=== PATIENT | female | born 1970 | race Caucasian/White ===

== ENCOUNTER 2016-06-26 10:52 | Outpatient (CLI) | payer MEDICARE, MEDICAID | END 2016-06-26 10:53 | disposition home or self-care (01) | DX: R50.9 Fever, unspecified (principal); R21 Rash and other nonspecific skin eruption; M79.1 Myalgia ==

== ENCOUNTER 2017-03-07 10:18 | Outpatient (CLI) | payer MEDICARE, MEDICAID ==
[2017-03-07 18:17] LABS: BILIRUBIN,URINE NEGATIVE (NEGATIVE); GLUCOSE, URINE (UA) NEGATIVE (NEGATIVE); KETONES,URINE (UA) NEGATIVE (NEGATIVE); LEUKOCYTE ESTERASE, URINE NEGATIVE (NEGATIVE); NITRITE,URINE NEGATIVE (NEGATIVE); OCCULT BLOOD,URINE NEGATIVE (NEGATIVE); PROTEIN,URINE NEGATIVE (NEGATIVE); UROBILINOGEN,URINE 0.2 (NORMAL) E.U./dL (NORMAL)
[2017-03-07 18:18] LABS: BASOPHILS # (AUTO) 0.1 10^3/uL (0.0-0.1); BASOPHILS % (AUTO) 1.2 %; EOSINOPHILS # (AUTO) 0.1 10^3/uL (0.0-0.7); EOSINOPHILS % (AUTO) 1.6 %; HGB - HEMOGLOBIN 12.9 g/dL (12.0-16.0); LYMPHOCYTES % (AUTO) 32.5 %; MEAN CORPUSCULAR HEMOGLOBIN 31.7 pg (27.0-31.0); MEAN CORPUSCULAR HGB CONC 32.8 g/dL (32.0-36.0); MEAN CORPUSCULAR VOLUME 96.6 fL (81.0-99.0); MEAN PLATELET VOLUME 9.6 fL (7.9-10.8); MONOCYTES # (AUTO) 0.5 10^3/uL (0.0-1.0); MONOCYTES % (AUTO) 7.6 %; NEUTROPHILS # (AUTO) 3.6 10^3/uL (1.5-6.6); NEUTROPHILS % (AUTO) 57.1 %; PLT - PLATELET COUNT 246 10^3/uL (130-450); RED BLOOD COUNT 4.08 10^6/uL (4.20-5.40); RED CELL DISTRIBUTION WIDTH 13.4 % (12.0-15.0); WHITE BLOOD COUNT 6.3 x10^3/uL (4.8-10.8)
[2017-03-07 18:29] LABS: CLARITY,URINE CLEAR (CLEAR)
[2017-03-07 18:44] LABS: ALBUMIN 4.4 g/dL (3.2-5.5); ALBUMIN/GLOBULIN RATIO 1.5 (1.0-2.2); ALKALINE PHOSPHATASE 48 IU/L (42-121); ALT ALANINE AMINOTRANSFERASE 44 IU/L (10-60); AST ASPARTATE AMINOTRANSFERASE 55 IU/L (10-42); BILIRUBIN,TOTAL 0.7 mg/dL (0.2-1.0); BUN - BLOOD UREA NITROGEN 17 mg/dL (6-20); CARBON DIOXIDE - CO2 23 mmol/L (21-32); CHLORIDE 103 mmol/L (101-111); CHOL/HDL RATIO 2.3 (<4.4); CHOLESTEROL 205 mg/dL; CREATININE 0.6 mg/dL (0.4-1.0); GFR - MDRD 107 (>89); GLUCOSE 97 mg/dL (70-100); HDL CHOLESTEROL 88 mg/dL; LDL CHOLESTEROL,CALCULATED 102 mg/dL; LDL/HDL RATIO 1.2 (<4.4); SODIUM 134 mmol/L (135-145); TOTAL PROTEIN 7.4 g/dL (6.7-8.2); VLDL CHOLESTEROL 15 mg/dL
[2017-03-07 18:47] LABS: THYROID STIMULATING HORMONE 2.2 uIU/mL (0.34-5.60)
== END 2017-03-07 10:19 | disposition home or self-care (01) ==
LOC: LAB.F 10:18
PROVIDERS: ATTEND Internal Medicine
DX: Z00.00 Encounter for general adult medical examination without abnormal findings (principal); R53.83 Other fatigue; R07.0 Pain in throat; M79.1 Myalgia; R53.81 Other malaise; M25.50 Pain in unspecified joint; F43.10 Post-traumatic stress disorder, unspecified; Z79.899 Other long term (current) drug therapy; R50.9 Fever, unspecified
CPT/HCPCS: 36415; 80053; 80061; 81001; 81003; 82607; 84443; 85025; 87086

== ENCOUNTER 2018-02-22 12:10 | Emergency (ER) | payer MEDICAID, MEDICARE ==
[2018-02-22 12:34] VITALS: BP 110/70
[2018-02-22] MEDS ORDERED: BUFFERED LIDOCAINE 10 ML SYRINGE SUBQ STA (13:37)
--- NOTE | 2018-02-22 13:38 | ED Physician Documentation ---
PD HPI LOWER EXT INJURY - Stated complaint Stated Complaint: R FOOT INJ - Chief complaint Chief Complaint: Ext Problem - History obtained from History obtained from: Patient - History of Present Illness PD HPI LOW EXT INJURY LOCATION: Right (She thinks she might have a retained foreign body or something on the skin of the top of the right little toe it has been there for about 2 months. Not worsening but is just persistently annoying. She also had a splinter in the left thumb about a week ago which was removed and she was started on Keflex at that time but she never took it. She is up-to-date on tetanus.) Review of Systems Constitutional: reports: Reviewed and negative Nose: reports: Reviewed and negative Throat: reports: Reviewed and negative Cardiac: reports: Reviewed and negative PD PAST MEDICAL HISTORY - Past Medical History Past Medical History: Yes Psych: Post traumatic stress disorder - Past Surgical History HEENT: Tonsil/Adenoidectomy - Allergies Allergies/Adverse Reactions: Allergies Allergy/AdvReac Type Severity Reaction Status Date / Time meperidine [From Demerol] Allergy Hallucinati Verified 02/22/18 12:35 ons promethazine [From Phenergan] Allergy Hallucinati Verified 02/22/18 12:35 ons codeine AdvReac Nausea Verified 02/22/18 12:35 - Social History Does the pt smoke?: No Smoking Status: Never smoker PD ED PE NORMAL - Vitals Vital signs reviewed: Yes - General General: Alert and oriented X 3, No acute distress - Extremities Extremities: Other (There is a completely healed callus over a wound on the left thumb without evidence of retained foreign body. There is a tiny pointed abscess on the top of the right little toe on the low medial side. Good range of motion and minimal cellulitis.) - Neuro Neuro: Alert and oriented X 3, Normal speech Results - Vitals Vitals: Vital Signs - 24 hr 02/22/18 12:29 Temperature 36.9 C Heart Rate 82 Respiratory 18 Rate Blood Pressure 110/70 O2 Saturation 100 Oxygen O2 Source Room air Procedures - Abscess I&D (location) R foot Preparation: Betadine Incision: Needle aspiration (it was tiny, about 1mm), Purulent drainage, Culture obtained. No: Incised with scalpel Other: Pt tolerated well, Dressing applied. No: Antibiotic prescribed (She has Keflex at home but does not want start antibiotics until the Culture is done.) Departure - Departure Disposition: 01 Home, Self Care Clinical Impression: Abscess Condition: Good Record reviewed to determine appropriate education?: Yes Instructions: ED Abscess IandD Comments: We are performing a wound culture, the results should be done in 48-72 hours. If antibiotic is necessary we will call you. Return if worse in the meantime, especially if you develop increased pain, fevers, cannot keep down the medication. Otherwise follow-up with your physician in approximately 2-3 days.
== END 2018-02-22 14:05 | disposition home or self-care (01) ==
LOC: ED 12:10
DX: L02.611 Cutaneous abscess of right foot (principal); B95.8 Unspecified staphylococcus as the cause of diseases classified elsewhere
CPT/HCPCS: 10160; 87070; 87181; 87205; 99282

== ENCOUNTER 2018-05-12 16:58 | Outpatient (CLI) | payer MEDICARE, MEDICAID | END 2018-05-12 16:59 | disposition home or self-care (01) | LOC: LAB 16:58 | PROVIDERS: ATTEND Internal Medicine | DX: R50.9 Fever, unspecified (principal); R05 Cough | CPT/HCPCS: 87275; 87276 ==

== ENCOUNTER 2018-05-12 17:28 | Outpatient (CLI) | payer MEDICARE, MEDICAID ==
--- NOTE | 2018-05-12 18:36 | XRAY Report ---
Reason: COUGH Procedure Date: 05/12/2018 Accession Number: [id number] / [id number] Procedure: XR - Chest 2 View X-Ray CPT Code: 02923 FULL RESULT: EXAM: CHEST RADIOGRAPHY EXAM DATE: 05/12/2018 05:44 PM. CLINICAL HISTORY: COUGH. COMPARISON: XR CHEST PA AND LAT 03/30/2012 12:46 PM. TECHNIQUE: 2 views. FINDINGS: Lungs/Pleura: No definite localized infiltrate, consolidation, effusion, or pneumothorax. Mediastinum: Heart and mediastinal contours are unremarkable. Other: None. IMPRESSION: Normal 2-view chest radiography. RADIA The call report notification system was initiated by Dr. Rickey Araujo at 06:35 PM on 05/12/2018.
== END 2018-05-12 17:29 | disposition home or self-care (01) ==
LOC: DI 17:28
PROVIDERS: ATTEND Internal Medicine
DX: R05 Cough (principal); R50.9 Fever, unspecified
CPT/HCPCS: 71046; 87275; 87276

== ENCOUNTER 2018-07-03 13:31 | Outpatient (CLI) | payer MEDICARE, MEDICAID ==
--- NOTE | 2018-07-05 20:03 | MRI Report ---
Reason: NECK PAIN WITH PAIN IN L ARM,NUMBNESS IN HANDS Procedure Date: 07/03/2018 Accession Number: [id number] / [id number] Procedure: MRI - Cervical Spine W/O CPT Code: FULL RESULT: EXAM: MRI CERVICAL SPINE WITHOUT CONTRAST EXAM DATE: 07/03/2018 02:43 PM. CLINICAL HISTORY: NECK PAIN WITH PAIN IN LEFT ARM, NUMBNESS IN HANDS. COMPARISONS: C SPINE 11/05/2007 10:24 AM. TECHNIQUE: Multiplanar, multisequence T1-weighted and fluid-sensitive sequences of the cervical spine without contrast. Other: None. FINDINGS: Neurologic Structures: The visualized posterior fossa structures are unremarkable. No signal abnormality in the visualized spinal cord. Alignment: New grade 1 anterolisthesis at C4-C5 measures 1-2 mm. Retrolisthesis at C5-C6 and C6-C7 is worsened measuring 2-3 mm. Bone Marrow: New type I Modic endplate changes are present at C4-C5, C5-C6, and C6-C7. Interspace Levels/Facets: C1-C2: Unremarkable. C2-C3: Mild left foraminal narrowing is present due to uncovertebral hypertrophy and facet arthropathy. The spinal canal and right foramen are patent. These findings have progressed, where there was no spinal canal or foraminal stenosis on the prior MRI. C3-C4: Disk bulge is present without spinal canal stenosis. The foramina are patent. The disk bulge is new. C4-C5: Disk bulge results in mild spinal canal stenosis without impingement of the spinal cord. There is moderate right foraminal narrowing due to uncovertebral hypertrophy and facet arthropathy. The left foramen is patent. There was no spinal canal or foraminal stenosis on the prior MRI. C5-C6: A posterior disk osteophyte complex results in mild spinal canal stenosis without impingement of the spinal cord. There is moderate left foraminal narrowing due to uncovertebral hypertrophy. The right foramen is patent. There is no spinal canal or foraminal stenosis on the prior MRI. C6-C7: The posterior disk osteophyte complex results in mild spinal canal stenosis without impingement of the spinal cord. There is moderate left and mild right foraminal narrowing due to uncovertebral hypertrophy. There is no spinal canal or foraminal stenosis on the prior MRI. C7-T1: Bilateral facet arthropathy is present without spinal canal or foraminal stenosis. Musculature: Normal. No edema or fatty atrophy. Other: The paravertebral and prevertebral soft tissues are normal. IMPRESSION: 1. Normal cervical spinal cord signal intensity. 2. Moderate progression of multilevel degenerative changes compared to the prior cervical spine MRI from 11/05/07. 3. However, no high-grade spinal canal stenosis or spinal cord impingement has developed. 4. New moderate right foraminal narrowing at C4-C5, on the left at C5-C6, and on the left at C6-C7. RADIA
== END 2018-07-03 13:32 | disposition home or self-care (01) ==
LOC: DI 13:31
PROVIDERS: ATTEND Internal Medicine
DX: M50.31 Other cervical disc degeneration, high cervical region (principal); M48.02 Spinal stenosis, cervical region; M47.9 Spondylosis, unspecified; M43.12 Spondylolisthesis, cervical region
CPT/HCPCS: 72141

== ENCOUNTER 2018-09-23 07:11 | Outpatient (CLI) | payer MEDICARE, MEDICAID ==
--- NOTE | 2018-09-23 14:32 | Ultrasound Report ---
Reason: CHRONIC HEPATITIS C WITHOUT MENTION OF HEPATIC COM Procedure Date: 09/23/2018 Accession Number: [id number] / [id number] Procedure: US - Abdomen Limited CPT Code: FULL RESULT: EXAM: ABDOMEN ULTRASOUND LIMITED, RUQ EXAM DATE: 09/23/2018 08:01 AM. CLINICAL HISTORY: CHRONIC HEPATITIS C WITHOUT MENTION OF HEPATIC COM. COMPARISON: None. TECHNIQUE: Real-time scanning was performed with static images obtained. FINDINGS: Liver: Minimally increased echogenicity, otherwise normal echo texture. This can limit sensitivity for underlying masses, no solid mass is seen. Liver measures at least 14.4 cm. A small simple 0.8 cm cyst is noted in the right lobe. Main portal vein flow: Hepatopetal. Gallbladder: Normal. No stones, wall thickening, or sonographic Ferrari's sign. Biliary System: CBD measures 3 mm. No intrahepatic or extrahepatic ductal dilatation. Other: Right kidney measures 10.7 cm in maximal sagittal dimension and demonstrates no overt mass, calculi or hydronephrosis. IMPRESSION: Mildly increased echogenicity of liver parenchyma which is a nonspecific finding sometimes associated with steatosis. RADIA
== END 2018-09-23 07:12 | disposition home or self-care (01) ==
LOC: DI 07:11
PROVIDERS: ATTEND Internal Medicine Gastroenterology
DX: B18.2 Chronic viral hepatitis C (principal)
CPT/HCPCS: 76705

== ENCOUNTER 2019-04-16 14:55 | Outpatient (CLI) | payer MEDICAID, MEDICARE ==
[2019-04-16 17:46] LABS: BASOPHILS # (AUTO) 0.1 10^3/uL (0.0-0.1); BASOPHILS % (AUTO) 0.5 %; EOSINOPHILS # (AUTO) 0.1 10^3/uL (0.0-0.7); EOSINOPHILS % (AUTO) 1.4 %; HGB - HEMOGLOBIN 12.8 g/dL (12.0-16.0); LYMPHOCYTES # (AUTO) 3.2 10^3/uL (1.5-3.5); LYMPHOCYTES % (AUTO) 31.6 %; MEAN CORPUSCULAR HEMOGLOBIN 31.7 pg (27.0-31.0); MEAN CORPUSCULAR HGB CONC 32.7 g/dL (32.0-36.0); MEAN CORPUSCULAR VOLUME 96.8 fL (81.0-99.0); MEAN PLATELET VOLUME 12.2 fL (7.9-10.8); MONOCYTES # (AUTO) 0.6 10^3/uL (0.0-1.0); MONOCYTES % (AUTO) 5.8 %; NEUTROPHILS % (AUTO) 60.3 %; PLT - PLATELET COUNT 254 10^3/uL (130-450); RED BLOOD COUNT 4.04 10^6/uL (4.20-5.40); RED CELL DISTRIBUTION WIDTH 13.5 % (12.0-15.0)
[2019-04-16 17:48] LABS: ALBUMIN 4.3 g/dL (3.2-5.5); ALBUMIN/GLOBULIN RATIO 1.4 (1.0-2.2); ALKALINE PHOSPHATASE 41 IU/L (42-121); ALT ALANINE AMINOTRANSFERASE < 10 IU/L (10-60); AST ASPARTATE AMINOTRANSFERASE 24 IU/L (10-42); BILIRUBIN,TOTAL 0.5 mg/dL (0.2-1.0); BUN - BLOOD UREA NITROGEN 24 mg/dL (6-20); CARBON DIOXIDE - CO2 21 mmol/L (21-32); CHLORIDE 104 mmol/L (101-111); CREATININE 0.6 mg/dL (0.4-1.0); GFR - MDRD 106 (>89); GLUCOSE 108 mg/dL (70-100); SODIUM 136 mmol/L (135-145); TOTAL PROTEIN 7.4 g/dL (6.7-8.2)
[2019-04-16 18:04] LABS: THYROID STIMULATING HORMONE 1.73 uIU/mL (0.34-5.60)
[2019-04-16 18:32] LABS: FOLLICLE STIMULATING HORMONE 8.17 mIU/mL
== END 2019-04-16 14:56 | disposition home or self-care (01) ==
LOC: LAB.S 14:55
PROVIDERS: ATTEND Internal Medicine
DX: Z79.899 Other long term (current) drug therapy (principal); R53.83 Other fatigue; N92.1 Excessive and frequent menstruation with irregular cycle
CPT/HCPCS: 36415; 80053; 83001; 84443; 85025

== ENCOUNTER 2019-08-26 07:19 | Outpatient (CLI) | payer MEDICARE ==
[2019-08-26 14:59] LABS: BASOPHILS # (AUTO) 0.1 10^3/uL (0.0-0.1); EOSINOPHILS # (AUTO) 0.3 10^3/uL (0.0-0.7); HGB - HEMOGLOBIN 12.5 g/dL (12.0-16.0); LYMPHOCYTES # (AUTO) 2.1 10^3/uL (1.5-3.5); LYMPHOCYTES % (AUTO) 29.9 %; MEAN CORPUSCULAR HEMOGLOBIN 31.6 pg (27.0-31.0); MEAN CORPUSCULAR HGB CONC 31.7 g/dL (32.0-36.0); MEAN CORPUSCULAR VOLUME 99.7 fL (81.0-99.0); MEAN PLATELET VOLUME 11.5 fL (7.9-10.8); MONOCYTES # (AUTO) 0.6 10^3/uL (0.0-1.0); MONOCYTES % (AUTO) 8.5 %; NEUTROPHILS # (AUTO) 3.9 10^3/uL (1.5-6.6); NEUTROPHILS % (AUTO) 56.3 %; PLT - PLATELET COUNT 260 10^3/uL (130-450); RED BLOOD COUNT 3.95 10^6/uL (4.20-5.40)
[2019-08-26 15:35] LABS: % IRON SATURATION 39 % (20-50); ALBUMIN 3.8 g/dL (3.2-5.5); ALBUMIN/GLOBULIN RATIO 1.4 (1.0-2.2); ALKALINE PHOSPHATASE 40 IU/L (42-121); ALT ALANINE AMINOTRANSFERASE 10 IU/L (10-60); AST ASPARTATE AMINOTRANSFERASE 18 IU/L (10-42); BILIRUBIN,TOTAL 0.9 mg/dL (0.2-1.0); BUN - BLOOD UREA NITROGEN 18 mg/dL (6-20); CALCIUM 8.6 mg/dL (8.5-10.3); CARBON DIOXIDE - CO2 25 mmol/L (21-32); CHLORIDE 109 mmol/L (101-111); CHOL/HDL RATIO 2.5 (<4.4); CHOLESTEROL 189 mg/dL; CREATININE 0.6 mg/dL (0.4-1.0); GLUCOSE 104 mg/dL (70-100); HDL CHOLESTEROL 75 mg/dL; IRON 120 ug/dL (28-170); LDL CHOLESTEROL,CALCULATED 104 mg/dL; LDL/HDL RATIO 1.4 (<4.4); SODIUM 139 mmol/L (135-145); TOTAL IRON BINDING CAPACITY 305 ug/dL (250-450); TOTAL PROTEIN 6.6 g/dL (6.7-8.2); TRANSFERRIN 218 mg/dL (192-382); VLDL CHOLESTEROL 10 mg/dL
[2019-08-26 15:43] LABS: THYROID STIMULATING HORMONE 2.96 uIU/mL (0.34-5.60)
[2019-08-26 15:50] LABS: FERRITIN 24.9 ng/mL (11.0-306.8)
[2019-08-26 16:11] LABS: FOLLICLE STIMULATING HORMONE 17.91 mIU/mL
== END 2019-08-26 07:20 | disposition home or self-care (01) ==
LOC: LAB.S 07:19
PROVIDERS: ATTEND Internal Medicine
DX: D64.9 Anemia, unspecified (principal); R53.83 Other fatigue; Z79.899 Other long term (current) drug therapy; R42 Dizziness and giddiness
CPT/HCPCS: 36415; 80053; 80061; 82607; 82728; 83001; 83540; 83721; 84443; 84466; 85025

== ENCOUNTER 2019-09-24 14:02 | Outpatient (CLI) | payer MEDICARE ==
--- NOTE | 2019-09-24 16:53 | MRI Report ---
PROCEDURE: Cervical Spine W/O INDICATIONS: NECK PAIN TECHNIQUE: Noncontrast sagittal T1 spin echo and T2 fast spin echo, sagittal STIR, foraminal oblique sagittal T2 fast spin echo, and axial gradient echo or T2 fast spin echo through the cervical spine. COMPARISON: Correlation is made with prior cervical spine MRI 07/03/18 (images only, no report). FINDINGS: Image quality: Motion artifact is noted. Alignment and Curvature: There is reversal of the normal cervical lordosis. There is minimal anterol isthesis of C4-C5 with mild retrolisthesis at C5-C6 and C6-C7. Bone Marrow: Marrow demonstrates normal overall signal. Spinal Cord: Visualized spinal cord has normal size and signal. No cerebellar tonsillar herniation. Paraspinous Soft Tissues: No paravertebral masses. Prevertebral soft tissues are normal in thicknes s. C2-C3: The disc height is well-preserved. There is loss of disc signal seen. Mild disc osteophyte complex is seen. There is mild right-sided and at least moderate left-sided facet hypertrophy seen. There is moderate right-sided and at least moderate left-sided neuroforaminal narrowing seen. No sig nificant central canal narrowing is seen. These imaging findings are similar to the images of the p rior examination. C3-C4: The disc height is well-preserved. There is loss of disc signal seen. Moderate disc osteophy te complex is seen, which is eccentric to the left side. There is mild right-sided and moderate left- sided facet hypertrophy seen at this level. There is moderate to severe left-sided and moderate right -sided neuroforaminal narrowing seen. Mild central canal narrowing is seen. These imaging findings are similar to the images of the prior examination. C4-C5: Moderate loss of disc height and signal are seen. Moderate disc osteophyte complex is seen, w hich is eccentric to the right. There is moderate facet hypertrophy seen, right worse than left. Ther e is moderate to severe right-sided and mild to moderate left-sided neuroforaminal narrowing seen. Mi ld to moderate central canal narrowing is seen. These imaging findings are similar to the images of the prior examination. C5-C6: Moderate to severe loss of disc height and disc signal is seen. Moderate disc osteophyte comp sherwin is seen, which is eccentric to the left. Moderate facet hypertrophy is seen. There is moderate to severe left and moderate right-sided neuroforaminal narrowing seen. Mild to moderate central canal narrowing is seen. No significant change compared to the prior. C6-C7: Moderate to severe loss of disc height and disc signal can be seen. Moderate disc osteophyte complex is seen, which is eccentric to the right. Mild to moderate facet hypertrophy is seen. There i s moderate to severe left-sided and at least moderate right-sided neuroforaminal narrowing seen. Mild to moderate central canal narrowing is seen. These imaging findings are similar to the images of th e prior examination. C7-T1: The disc height is relatively well preserved. Mild disc osteophyte complex is seen. There is mild left-sided and no significant right-sided neuroforaminal narrowing seen. No significant centr al canal narrowing is seen. No significant change compared to the prior examination. IMPRESSION: Multiple levels of cervical spine degenerative change are seen, which are most prominent at C5-C6 and C6-C7. No significant progression compared to the prior 2007 examination. Reviewed by: Kumar Yoon MD on 09/24/2019 3:52 PM NAMAN Approved by: Kumar Yoon MD on 09/24/2019 3:52 PM NAMAN Station ID: [id number]
== END 2019-09-24 14:03 | disposition home or self-care (01) ==
LOC: DI 14:02
PROVIDERS: ATTEND Internal Medicine
DX: M50.322 Other cervical disc degeneration at C5-C6 level (principal); M54.5 Low back pain
CPT/HCPCS: 72141

== ENCOUNTER 2020-04-21 13:02 | Outpatient (CLI) | payer MEDICARE, MEDICAID ==
--- NOTE | 2020-04-24 12:56 | Mammography Report ---
BILATERAL DIGITAL SCREENING MAMMOGRAM 3D/2D: 04/21/2020 CLINICAL: Routine screening. No prior exams were available for comparison. There are scattered fibroglandular elements in both br easts. No significant masses, calcifications, or other findings are seen in either breast. IMPRESSION: NEGATIVE There is no mammographic evidence of malignancy. A 1 year screening mammogram is recommended. This exam was interpreted at Station ID: [id number]. NOTE: For mammograms, a report in lay terms will be sent to the patient. Approximately 15% of breast malignancies will not be visualized mammographically. In the management of a palpable breast mass, a negative mammogram must not discourage biopsy of a clinically suspicious lesion. Electronically Signed By: Karson velazquez/pensebastien:04/21/2020 17:26:38 ACR BI-RADS Category 1: Negative 3341F PARENCHYMAL PATTERN: (A) - The breast(s) demonstrate(s) scattered fibroglandular densities. BI-RADS CATEGORY: (1) - 1 RECOMMENDATION: (ANNUAL) - Recommend routine annual screening mammography. [id number] 1 year screening LATERALITY: (B)
== END 2020-04-21 13:03 | disposition home or self-care (01) ==
LOC: DI 13:02
DX: Z12.31 Encounter for screening mammogram for malignant neoplasm of breast (principal)

== ENCOUNTER 2020-06-07 07:05 | Outpatient (CLI) | payer MEDICARE, MEDICAID ==
--- NOTE | 2020-06-07 16:07 | Ultrasound Report ---
PROCEDURE: Pelvic w/Transvaginal INDICATIONS: ABN UTERINE BLEEDING TECHNIQUE: Real-time scanning was performed of the pelvic organs, with image documentation. Additional endovagi nal scanning was necessary due to incomplete visualization of the adnexal and endometrial structures by transabdominal scanning. COMPARISON: None. FINDINGS: No pathologic free abdominal or pelvic fluid. Uterus: Uterus is normal in size at 7.9 x 5.1 x 5.0 cm. The endometrium measures 7.4 mm in combined thickness. Within the uterus in the mid posterior intramural and submucosal regions there are foci o f heterogeneous echogenicity. They measure 15 x 12 x 13 mm and 19 x 18 x 14 mm respectively. Ovaries: Right ovary measures 2.4 x 2.3 x 1.1 cm, volume 3.2 cc. Left ovary measures 3.7 x 2.6 x 2.5 cm, volume 12.6 cc. Focus of decreased echogenicity is noted within the left ovary measuring 2.7 x 2 .4 x 2.5 cm. IMPRESSION: 1. Foci of uterine heterogeneous echogenicity suggestive of small fibroids. 2. Left ovarian cyst. Reviewed by: Aleida Finnegan MD on 06/07/2020 4:05 PM PDT Approved by: Aleida Finnegan MD on 06/07/2020 4:05 PM PDT Station ID: [id number]
== END 2020-06-07 07:06 | disposition home or self-care (01) ==
LOC: DI 07:05
PROVIDERS: ATTEND Advanced Practice Midwife
DX: N93.9 Abnormal uterine and vaginal bleeding, unspecified (principal); N83.202 Unspecified ovarian cyst, left side

== ENCOUNTER 2020-06-18 15:40 | Emergency (ER) | payer MEDICARE, MEDICAID ==
--- NOTE | 2020-06-18 16:17 | ED Physician Documentation ---
History of Present Illness - Stated complaint Stated Complaint: DIZZINESS - Chief complaint Chief Complaint: Neuro - History obtained from History obtained from: Patient - History of Present Illness Pain level max: 0 Pain level now: 0 - Additonal information Additional information: Patient is a 50-year-old female who presents to the emergency department stating she has had intermittent dizziness for the past several days. She states she recently had a month-long episode of vaginal bleeding, thought to be secondary to uterine fibroids. She states she is no longer bleeding. She contacted her primary care provider who recommended she come here to have her hemoglobin rechecked. No numbness or tingling. No difficulty with speech. No vision changes. Worse with standing, better with sitting or lying down. No changes with turning her head. She states that normally lasts for a few seconds at a time. She states her doctor also wanted her to have her thyroid checked. No chest pain. No shortness of breath. Review of Systems Constitutional: denies: Fever, Chills Ears: denies: Ear pain Nose: denies: Rhinorrhea / runny nose, Congestion Throat: denies: Sore throat Cardiac: denies: Chest pain / pressure, Palpitations Respiratory: denies: Cough, Wheezing GI: denies: Nausea, Vomiting, Diarrhea : denies: Dysuria Skin: denies: Rash Musculoskeletal: denies: Neck pain, Back pain Neurologic: denies: Headache PD PAST MEDICAL HISTORY - Past Medical History Past Medical History: Yes Cardiovascular: None Respiratory: None Neuro: None Endocrine/Autoimmune: None GI: None TECHNICAL INSPECTOR: None : None HEENT: None Psych: Anxiety, Post traumatic stress disorder Musculoskeletal: None Derm: None - Past Surgical History Past Surgical History: Yes HEENT: Tonsil/Adenoidectomy - Present Medications Home Medications: Ambulatory Orders Medication Instructions Recorded Confirmed Atomoxetine HCl [Strattera] 1 tab PO DAILY 03/03/18 03/03/18 cephALEXin [Keflex] 500 mg PO Q6H #24 capsule 03/03/18 - Allergies Allergies/Adverse Reactions: Allergies Allergy/AdvReac Type Severity Reaction Status Date / Time meperidine [From Demerol] Allergy Hallucinati Verified 06/18/20 15:46 ons promethazine [From Phenergan] Allergy Hallucinati Verified 06/18/20 15:46 ons codeine AdvReac Nausea Verified 06/18/20 15:46 - Social History Does the pt smoke?: No Smoking Status: Never smoker Does the pt drink ETOH?: No Does the pt have substance abuse?: No - Immunizations Immunizations are current?: Yes - POLST Patient has POLST: No PD ED PE NORMAL - Vitals Vital signs reviewed: Yes - General General: Alert and oriented X 3, No acute distress, Well developed/nourished - HEENT HEENT: PERRL, Moist mucous membranes - Neck Neck: Supple, no meningeal sign - Cardiac Cardiac: RRR, Strong equal pulses - Respiratory Respiratory: No respiratory distress, Clear bilaterally - Abdomen Abdomen: Soft, Non tender, Non distended - Derm Derm: Warm and dry - Extremities Extremities: No edema, No calf tenderness / cord - Neuro Neuro: Alert and oriented X 3, sheetrock applicator 2-12 intact, No motor deficit, No sensory deficit, Other (Negative hints exam. No nystagmus. Normal cerebellar test. Normal gait.) Eye Opening: Spontaneous Motor: Obeys Commands Verbal: Oriented GCS Score: 15 - Psych Psych: Normal mood, Normal affect - Free text exam Free text exam: NIHSS 0 Results - Vitals Vitals: Vital Signs - 24 hr 06/18/20 06/18/20 06/18/20 15:46 16:05 17:31 Temperature 37.4 C 37.4 C 37.2 C Heart Rate 80 80 80 Respiratory 18 18 16 Rate Blood Pressure 116/78 116/78 118/76 O2 Saturation 99 99 100 Oxygen O2 Source Room air - EKG (time done) 1607 Rate: Rate (enter#) (69) Rhythm: NSR [place]: Normal Intervals: Normal MT QRS: Normal Ischemia: Non specific changes - Labs Labs: Laboratory Tests 06/18/20 06/18/20 06/18/20 16:42 16:42 16:42 WBC 7.3 RBC 4.02 L Hgb 13.2 Hct 38.9 MCV 96.8 MCH 32.8 H MCHC 33.9 RDW 13.3 Plt Count 275 MPV 10.3 Neut # (Auto) 4.1 Lymph # (Auto) 2.4 Tensas # (Auto) 0.6 Eos # (Auto) 0.1 Baso # (Auto) 0.1 Absolute Nucleated RBC 0.00 Nucleated RBC % 0.0 Sodium 135 Potassium 3.4 L Chloride 101 Carbon Dioxide 25 Anion Gap 9.0 BUN 24 H Creatinine 0.7 Estimated GFR (MDRD) 88 L Glucose 98 Calcium 9.2 Total Bilirubin 0.3 AST 20 ALT 11 Alkaline Phosphatase 48 Total Protein 7.4 Albumin 4.2 Globulin 3.2 Albumin/Globulin Ratio 1.3 TSH 1.68 Free T4 0.83 PD MEDICAL DECISION MAKING - ED course Complexity details: reviewed results, re-evaluated patient, considered differential, d/w patient ED course: No significant laboratory abnormalities. Does appear dehydrated on exam with an elevated BUN to creatinine ratio. Patient is well-appearing, nontoxic. Afebri le. No focal neurological deficits. Patient counseled regarding signs and symptoms for which I believe and urgent re-evaluation would be necessary. Patient with good understanding of and agreement to plan and is comfortable going home at this time This document was made in part using voice recognition software. While efforts are made to proofread this document, sound alike and grammatical errors may occur. Will increase fluid intake at home. Departure - Departure Disposition: 01 Home, Self Care Clinical Impression: Dehydration, Dizziness Condition: Good Instructions: ED Dehydration Follow-Up: Jenna Garcia MD [Primary Care Provider] - Within 1 week Comments: Your blood counts are normal today. Please follow-up with your doctor for further care. You do have signs of dehydration on your blood work. Please increase your water intake at home. Return if you worsen. Discharge Date/Time: 06/18/20 17:31
--- OUTSIDE RECORDS SUMMARY | 2020-06-18 16:26 | EXTERNAL MEDICAL SUMMARY RPT | Continuity of Care Document ---
:1970 Demographics Phone Unavailable Preferred Language Unknown Marital Status Unknown Voodoo Affiliation Unknown Race Unknown Ethnic Group Unknown Author Organization [facility] Address [address] [phone] Phone Social History date description facility [id number]
[2020-06-18 16:47] LABS: BASOPHILS # (AUTO) 0.1 10^3/uL (0.0-0.1); BASOPHILS % (AUTO) 0.7 %; EOSINOPHILS # (AUTO) 0.1 10^3/uL (0.0-0.7); EOSINOPHILS % (AUTO) 1.8 %; HCT - HEMATOCRIT 38.9 % (37.0-47.0); HGB - HEMOGLOBIN 13.2 g/dL (12.0-16.0); LYMPHOCYTES # (AUTO) 2.4 10^3/uL (1.5-3.5); LYMPHOCYTES % (AUTO) 32.3 %; MEAN CORPUSCULAR HEMOGLOBIN 32.8 pg (27.0-31.0); MEAN CORPUSCULAR HGB CONC 33.9 g/dL (32.0-36.0); MEAN CORPUSCULAR VOLUME 96.8 fL (81.0-99.0); MEAN PLATELET VOLUME 10.3 fL (7.9-10.8); MONOCYTES # (AUTO) 0.6 10^3/uL (0.0-1.0); MONOCYTES % (AUTO) 8.3 %; NEUTROPHILS # (AUTO) 4.1 10^3/uL (1.5-6.6); NEUTROPHILS % (AUTO) 56.6 %; PLT - PLATELET COUNT 275 10^3/uL (130-450); RED BLOOD COUNT 4.02 10^6/uL (4.20-5.40); RED CELL DISTRIBUTION WIDTH 13.3 % (12.0-15.0); WHITE BLOOD COUNT 7.3 x10^3/uL (4.8-10.8)
[2020-06-18 17:01] LABS: ALBUMIN 4.2 g/dL (3.2-5.5); ALBUMIN/GLOBULIN RATIO 1.3 (1.0-2.2); BILIRUBIN,TOTAL 0.3 mg/dL (0.2-1.0); CALCIUM 9.2 mg/dL (8.5-10.3); CREATININE 0.7 mg/dL (0.4-1.0); POTASSIUM 3.4 mmol/L (3.5-5.0); TOTAL PROTEIN 7.4 g/dL (6.7-8.2)
[2020-06-18 17:18] LABS: THYROID STIMULATING HORMONE 1.68 uIU/mL (0.34-5.60)
[2020-06-18 17:20] LABS: FREE T4 (FREE THYROXINE) 0.83 ng/dL (0.58-1.64)
[2020-06-18 17:32] VITALS: BP 118/76
== END 2020-06-18 17:31 | disposition home or self-care (01) ==
LOC: ED 15:40
DX: E86.0 Dehydration (principal); R42 Dizziness and giddiness; F41.9 Anxiety disorder, unspecified
CPT/HCPCS: 36415; 80053; 84439; 84443; 85025; 93005; 99283; 99284

== ENCOUNTER 2020-11-14 17:19 | Outpatient (CLI) | payer MEDICARE, MEDICAID ==
--- NOTE | 2020-11-15 11:15 | XRAY Report ---
PROCEDURE: Finger(s) LT INDICATIONS: L small finger deformity TECHNIQUE: AP hand, 3 views of the left finger(s) acquired. COMPARISON: None. FINDINGS: No acute fracture. Severe little finger DIP joint degeneration with prominent spurring. There is soft tissue swelling about the finger at the level of the PIP joint. Marginal lucency seen at the PIP todd nt of the ring finger. Scattered subchondral sclerosis and spurring. 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 No definite fracture however follow-up radiographs in 10 days could be performed if the patient's sym ptoms do not improve to exclude occult fracture/assess for healing sclerosis. Reviewed by: Rowdy Del Castillo MD on 11/15/2020 11:14 AM PDT Approved by: Rowdy Del Castillo MD on 11/15/2020 11:14 AM PDT Station ID: [id number]
== END 2020-11-14 17:20 | disposition home or self-care (01) ==
LOC: DI 17:19
PROVIDERS: ATTEND Internal Medicine
DX: M19.042 Primary osteoarthritis, left hand (principal)

== ENCOUNTER 2021-04-25 08:19 | Outpatient (CLI) | payer MEDICARE, MEDICAID ==
[2021-04-25 15:26] LABS: BASOPHILS # (AUTO) 0.1 10^3/uL (0.0-0.1); EOSINOPHILS # (AUTO) 0.2 10^3/uL (0.0-0.7); EOSINOPHILS % (AUTO) 2.6 %; HCT - HEMATOCRIT 37.6 % (37.0-47.0); HGB - HEMOGLOBIN 12.6 g/dL (12.0-16.0); LYMPHOCYTES # (AUTO) 1.9 10^3/uL (1.5-3.5); LYMPHOCYTES % (AUTO) 33.2 %; MEAN CORPUSCULAR HEMOGLOBIN 32.5 pg (27.0-31.0); MEAN CORPUSCULAR HGB CONC 33.5 g/dL (32.0-36.0); MEAN CORPUSCULAR VOLUME 96.9 fL (81.0-99.0); MEAN PLATELET VOLUME 11.6 fL (7.9-10.8); MONOCYTES # (AUTO) 0.6 10^3/uL (0.0-1.0); MONOCYTES % (AUTO) 10.5 %; NEUTROPHILS % (AUTO) 52.7 %; PLT - PLATELET COUNT 286 10^3/uL (130-450); RED BLOOD COUNT 3.88 10^6/uL (4.20-5.40); RED CELL DISTRIBUTION WIDTH 13.3 % (12.0-15.0); WHITE BLOOD COUNT 5.7 x10^3/uL (4.8-10.8)
[2021-04-25 16:10] LABS: % IRON SATURATION 26 % (20-50); ALBUMIN 4.1 g/dL (3.2-5.5); ALBUMIN/GLOBULIN RATIO 1.6 (1.0-2.2); ALKALINE PHOSPHATASE 48 IU/L (42-121); ALT ALANINE AMINOTRANSFERASE 10 IU/L (10-60); AST ASPARTATE AMINOTRANSFERASE 19 IU/L (10-42); BILIRUBIN,TOTAL 0.7 mg/dL (0.2-1.0); BUN - BLOOD UREA NITROGEN 19 mg/dL (6-20); CALCIUM 9.1 mg/dL (8.5-10.3); CARBON DIOXIDE - CO2 26 mmol/L (21-32); CHLORIDE 99 mmol/L (101-111); CHOL/HDL RATIO 2.6 (<4.4); CHOLESTEROL 218 mg/dL; CREATININE 0.7 mg/dL (0.4-1.0); GFR - MDRD 88 (>89); GLUCOSE 95 mg/dL (70-100); HDL CHOLESTEROL 85 mg/dL; IRON 96 ug/dL (28-170); LDL CHOLESTEROL,CALCULATED 122 mg/dL; LDL/HDL RATIO 1.4 (<4.4); POTASSIUM 4.3 mmol/L (3.5-5.0); SODIUM 134 mmol/L (135-145); TOTAL IRON BINDING CAPACITY 370 ug/dL (250-450); TOTAL PROTEIN 6.7 g/dL (6.7-8.2); TRANSFERRIN 264 mg/dL (192-382); TRIGLYCERIDES 57 mg/dL; VLDL CHOLESTEROL 11 mg/dL
[2021-04-25 16:18] LABS: THYROID STIMULATING HORMONE 2.66 uIU/mL (0.34-5.60)
[2021-04-25 16:22] LABS: FREE T3 3.42 pg/mL (2.5-3.9)
[2021-04-25 16:23] LABS: FREE T4 (FREE THYROXINE) 0.79 ng/dL (0.58-1.64)
[2021-04-25 16:27] LABS: FERRITIN 15.8 ng/mL (11.0-306.8)
[2021-04-25 16:47] LABS: FOLLICLE STIMULATING HORMONE 26.75 mIU/mL
[2021-04-25 19:42] LABS: ESTIMATED AVERAGE GLUCOSE 103 mg/dL (70-100); HEMOGLOBIN A1c% 5.2 % (4.27-6.07)
== END 2021-04-25 08:20 | disposition home or self-care (01) ==
LOC: LAB.S 08:19
PROVIDERS: ATTEND Internal Medicine
DX: R53.83 Other fatigue (principal); N92.0 Excessive and frequent menstruation with regular cycle; M19.90 Unspecified osteoarthritis, unspecified site; R42 Dizziness and giddiness; Z79.899 Other long term (current) drug therapy; R73.01 Impaired fasting glucose
CPT/HCPCS: 36415; 80053; 80061; 82607; 82728; 83001; 83036; 83540; 83721; 84439; 84443; 84466; 84481; 84550; 85025

== ENCOUNTER 2021-05-20 17:15 | Emergency (ER) | payer OTHER, MEDICARE, MEDICAID ==
[2021-05-20 20:04] VITALS: BP 137/72
[2021-05-20] MEDS ORDERED: IBUPROFEN 600 MG TABLET PO STA (20:25)
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
== END 2021-05-20 20:35 | disposition home or self-care (01) ==
LOC: ED 17:15
DX: S16.1XXA Strain of muscle, fascia and tendon at neck level, initial encounter (principal); V49.59XA Passenger injured in collision with other motor vehicles in traffic accident, initial encounter
CPT/HCPCS: 99282; A9270

== ENCOUNTER 2021-05-25 15:50 | Outpatient (CLI) | payer OTHER, MEDICARE, MEDICAID ==
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
== END 2021-05-25 15:51 | disposition home or self-care (01) ==
LOC: DI 15:50
PROVIDERS: ATTEND Internal Medicine
DX: M54.2 Cervicalgia (principal); R20.0 Anesthesia of skin; M54.6 Pain in thoracic spine; H53.9 Unspecified visual disturbance; M79.602 Pain in left arm; R20.2 Paresthesia of skin

== ENCOUNTER 2021-06-20 22:50 | Emergency (ER) | payer MEDICARE, MEDICAID ==
[2021-06-20 23:12] VITALS: BP 100/80
[2021-06-21] MEDS ORDERED: AMOX/CLAV 875 MG/125 MG TABLET PO STA (00:09)
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
--- NOTE | 2021-06-21 15:33 | ED Physician Documentation ---
ED Addendum - Addendum Addendum: 06/21/21 15:33 Took call from patient, she states that she went to [facility] and they gave her Flexeril instead of Augmentin. Confirmed Augmentin prescription on the chart and that the prescription had gone through to [facility]. I tried to call [facility] to clarify but there was no answer and I just kept getting hung up on. I called the patient back and we agreed that I would resend the prescription to [facility] in [place] instead.
== END 2021-06-21 00:29 | disposition home or self-care (01) ==
LOC: ED 22:50
DX: S01.23XA Puncture wound without foreign body of nose, initial encounter (principal); W54.0XXA Bitten by dog, initial encounter
CPT/HCPCS: 99282; A9270

== ENCOUNTER 2021-11-19 14:13 | Outpatient (CLI) | payer MEDICARE, MEDICAID ==
--- NOTE | 2021-11-20 10:13 | MRI Report ---
PROCEDURE: Cervical Spine W/O INDICATIONS: NECK PAIN TECHNIQUE: Noncontrast sagittal T1 spin echo and T2 fast spin echo, sagittal STIR, foraminal oblique sagittal T2 fast spin echo, and axial gradient echo or T2 fast spin echo through the cervical spine. COMPARISON: 09/24/2019, 07/03/2018 Correlation is made with the prior cervical spine CT, 05/25/2021. FINDINGS: Image quality: Motion artifact is noted. Alignment and Curvature: There is minimal anterolisthesis at C3-C4, with mild anterolisthesis at C4- C5. Minimal retrolisthesis is seen at C5-C6 and C6-C7. Bone Marrow: Marrow demonstrates normal overall signal. Spinal Cord: Visualized spinal cord has normal size and signal. No cerebellar tonsillar herniation. Paraspinous Soft Tissues: No paravertebral masses. Prevertebral soft tissues are normal in thicknes s. C2-C3: The disc height is well-preserved. There is loss of disc signal seen. Mild to moderate disc o steophyte complex is seen. There is mild right-sided and at least moderate left-sided facet hypertrop hy. There is at least moderate left-sided and mild to moderate right-sided neuroforaminal narrowing. No significant central canal narrowing is seen. These imaging findings are similar to the images of the prior examination. C3-C4: The disc height is well-preserved. There is loss of disc signal seen. Mild disc osteophyte complex is seen. There is mild right-sided and moderate left-sided facet hypertrophy. There is at l east moderate left-sided and moderate right-sided neuroforaminal narrowing. Minimal central canal alton rowing is seen. No significant change compared to the prior examination. C4-C5: At least moderate loss of disc height is seen. Moderate disc osteophyte complex is seen, whic h is eccentric to the right. Uncovertebral joint hypertrophy is seen at this level. There is modera te right-sided and mild left-sided facet hypertrophy. There is moderate to severe right-sided and mod erate left-sided neuroforaminal narrowing. Mild to moderate central canal narrowing is seen, with ass ociated mild mass effect upon the ventral spinal cord. These imaging findings are similar to the liza ges of the prior examination. C5-C6: Moderate to severe loss of disc height and disc signal can be seen. Moderate disc osteophyte complex is seen, which is eccentric to the left. Uncovertebral joint hypertrophy is seen at this lev el. Moderate facet hypertrophy is seen, left worse than right. There is moderate to severe left-side d and moderate right-sided neuroforaminal narrowing. Mild to moderate central canal narrowing is seen , with mild mass effect upon the ventral spinal cord. No significant change compared to the prior ex amination. C6-C7: At least moderate loss of disc height and disc signal can be seen. At least moderate disc ost eophyte complex is seen, which is eccentric to the left. Mild to moderate facet hypertrophy is seen. There is moderate to severe left-sided and moderate right-sided neuroforaminal narrowing. Mild to mo derate central canal narrowing is seen. These imaging findings are stable compared to the prior exa mination. C7-T1: Mild loss of disc height and disc signal are seen. Mild disc osteophyte complex is seen. Mild facet hypertrophy is seen. Mild left-sided neuroforaminal narrowing is seen. No significant righ t-sided neuroforaminal narrowing can be seen. No significant central canal narrowing can be seen. These imaging findings are stable compared to the prior examination. IMPRESSION: Multiple levels of cervical spine degenerative change can be seen, which are similar to the 2020 MRI. Reviewed by: Kumar Yoon MD on 11/20/2021 9:12 AM NAMAN Approved by: Kumar Yoon MD on 11/20/2021 9:12 AM NAMAN Station ID: [id number]
== END 2021-11-19 14:14 | disposition home or self-care (01) ==
LOC: DI 14:13
PROVIDERS: ATTEND Internal Medicine
DX: M47.812 Spondylosis without myelopathy or radiculopathy, cervical region (principal); M48.02 Spinal stenosis, cervical region; M50.31 Other cervical disc degeneration, high cervical region

== ENCOUNTER 2022-03-01 12:59 | Outpatient (CLI) | payer MEDICARE, MEDICAID ==
--- NOTE | 2022-03-01 14:09 | MRI Report ---
PROCEDURE: ANKLE WO - LT INDICATIONS: ACHILLES TENDINOSIS TECHNIQUE: Noncontrast Magnetic Resonance Imaging (MRI) of the ankle/hindfoot was performed utilizing the follow ing sequences: sagittal T1 spin echo, sagittal STIR, axial PD fast spin echo, axial T2 fast spin echo with fat saturation, coronal T2 spin echo with fat saturation, and coronal PD fast spin echo with fa t saturation. COMPARISON: None. FINDINGS: Image quality: Excellent. Bones and joints: No acute trabecular bone injury or fracture. No hindfoot coalition. The ankle mortise is maintained. No osteochondral defect is seen at the talar dome. No significant degenerative changes are seen in t he midfoot or hindfoot. Medial structures: Mildly increased signal seen within the deep fibers of the deltoid ligament, most compatible with a chronic low-grade sprain. The spring ligament components are intact. The posterior tibialis, flexor digitorum longus, and flexor hallucis longus tendons are intact. The posterior tibia l neurovascular bundle appears normal within the tarsal tunnel, without extrinsic mass effect. Lateral structures: The anterior and posterior distal tibiofibular ligaments are intact. The anterior talofibular ligamen t is attenuated, consistent with a chronic moderate to high-grade sprain. The calcaneofibular ligamen t and the posterior talofibular ligament are intact. There is mild peroneus brevis and longus tendino sis and tenosynovitis. Normal fatty signal seen in the sinus tarsi. Anterior structures: The tibialis anterior, extensor hallucis longus, and extensor digitorum longus tendons appear intact. Posterior and plantar structures: There is mild thickening of the Achilles tendon, consistent with tendinosis. Focal fluid signal inten sity is also seen, suggesting a low-grade partial intrasubstance tear. There is mild thickening the p roximal plantar fascia without surrounding edema, consistent with chronic fasciitis. Grade 2 fatty in filtration of the abductor digiti minimi is likely secondary to chronic denervation changes. IMPRESSION: 1.Moderate tendinosis and focal low-grade partial intrasubstance tearing of the Achilles tendon is mi dportion. The bulk of the tendon fibers are intact. 2.Chronic grade 2 sprain of the anterior talofibular ligament. 3.Mild peroneus brevis and longus tendinosis and tenosynovitis. 4.Chronic low-grade sprain of the deltoid ligament. 5.Mild chronic proximal plantar fasciitis. 6.Mild fatty infiltration of the abductor digiti quinti minimi muscle is likely secondary to chronic denervation changes/Grimm neuropathy. Reviewed by: Elias Barrett MD on 03/01/2022 2:08 PM PST Approved by: Elias Barrett MD on 03/01/2022 2:08 PM PST Station ID: [id number]
== END 2022-03-01 13:00 | disposition home or self-care (01) ==
LOC: DI 12:59
PROVIDERS: ATTEND Podiatrist
DX: S86.012A Strain of left Achilles tendon, initial encounter (principal); S93.492A Sprain of other ligament of left ankle, initial encounter; S93.422A Sprain of deltoid ligament of left ankle, initial encounter; M72.2 Plantar fascial fibromatosis

== ENCOUNTER 2022-12-05 11:20 | Outpatient (CLI) | payer MEDICARE, MEDICAID ==
--- NOTE | 2022-12-05 13:21 | XRAY Report ---
PROCEDURE: Hand 3 View BILAT INDICATIONS: B/L HAND PAIN TECHNIQUE: 3 views of the hand(s) acquired. COMPARISON: None. FINDINGS: Bones: No fractures or dislocations. No suspicious bony lesions. Interphalangeal joint space narr owing with osteophytosis, most prominent in the DIP joints. Soft tissues: No suspicious soft tissue calcifications or masses. 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 Reviewed by: José Luis Fink on 12/05/2022 1:19 PM PDT Approved by: José Luis Fink on 12/05/2022 1:19 PM PDT Station ID: [id number]
== END 2022-12-05 11:21 | disposition home or self-care (01) ==
LOC: DI.S 11:20
PROVIDERS: ATTEND Physician Assistant Medical
DX: M15.1 Heberden's nodes (with arthropathy) (principal); M15.2 Bouchard's nodes (with arthropathy); M25.742 Osteophyte, left hand; M25.741 Osteophyte, right hand

== ENCOUNTER 2023-02-05 08:03 | Outpatient (CLI) | payer MEDICARE, MEDICAID ==
[2023-02-05 14:44] LABS: BASOPHILS # (AUTO) 0.1 10^3/uL (0.0-0.1); BASOPHILS % (AUTO) 1.2 %; EOSINOPHILS # (AUTO) 0.2 10^3/uL (0.0-0.7); EOSINOPHILS % (AUTO) 3.1 %; HGB - HEMOGLOBIN 13.1 g/dL (12.0-16.0); LYMPHOCYTES # (AUTO) 2.3 10^3/uL (1.5-3.5); LYMPHOCYTES % (AUTO) 40.6 %; MEAN CORPUSCULAR HEMOGLOBIN 31.4 pg (27.0-31.0); MEAN CORPUSCULAR VOLUME 98.3 fL (81.0-99.0); MEAN PLATELET VOLUME 11.3 fL (7.9-10.8); MONOCYTES # (AUTO) 0.5 10^3/uL (0.0-1.0); MONOCYTES % (AUTO) 8.7 %; NEUTROPHILS # (AUTO) 2.6 10^3/uL (1.5-6.6); NEUTROPHILS % (AUTO) 46.2 %; PLT - PLATELET COUNT 292 10^3/uL (130-450); RED BLOOD COUNT 4.17 10^6/uL (4.20-5.40); RED CELL DISTRIBUTION WIDTH 13.8 % (12.0-15.0); WHITE BLOOD COUNT 5.7 x10^3/uL (4.8-10.8)
[2023-02-05 15:24] LABS: ALBUMIN 4.4 g/dL (3.2-5.5); ALBUMIN/GLOBULIN RATIO 1.6 (1.0-2.2); ALKALINE PHOSPHATASE 67 IU/L (42-121); ALT ALANINE AMINOTRANSFERASE 8 IU/L (10-60); AST ASPARTATE AMINOTRANSFERASE 16 IU/L (10-42); BILIRUBIN,TOTAL 0.4 mg/dL (0.2-1.0); BUN - BLOOD UREA NITROGEN 23 mg/dL (6-20); CALCIUM 9.7 mg/dL (8.5-10.3); CARBON DIOXIDE - CO2 30 mmol/L (21-32); CHLORIDE 105 mmol/L (101-111); CHOL/HDL RATIO 2.6 (<4.4); CHOLESTEROL 205 mg/dL; CREATININE 0.7 mg/dL (0.6-1.3); GFR - MDRD 87 (>89); GLUCOSE 91 mg/dL (74-104); HDL CHOLESTEROL 79 mg/dL; LDL CHOLESTEROL,CALCULATED 108 mg/dL; LDL/HDL RATIO 1.4 (<4.4); POTASSIUM 4.3 mmol/L (3.5-4.5); SODIUM 138 mmol/L (135-145); TOTAL PROTEIN 7.1 g/dL (6.4-8.9); TRIGLYCERIDES 88 mg/dL (48-352); VLDL CHOLESTEROL 18 mg/dL
[2023-02-05 15:47] LABS: FERRITIN 24.1 ng/mL (11.0-306.8)
[2023-02-05 20:17] LABS: ESTIMATED AVERAGE GLUCOSE 111 mg/dL (70-100); HEMOGLOBIN A1c% 5.5 % (4.27-6.07)
== END 2023-02-05 08:04 | disposition home or self-care (01) ==
LOC: LAB.S 08:03
PROVIDERS: ATTEND Nurse Practitioner
DX: R42 Dizziness and giddiness (principal); R63.1 Polydipsia; Z13.228 Encounter for screening for other metabolic disorders; Z13.220 Encounter for screening for lipoid disorders; Z13.0 Encounter for screening for diseases of the blood and blood-forming organs and certain disorders involving the immune mechanism; Z13.1 Encounter for screening for diabetes mellitus; Z13.29 Encounter for screening for other suspected endocrine disorder
CPT/HCPCS: 36415; 80053; 80061; 82728; 83036; 83721; 84443; 85025

== ENCOUNTER 2023-08-25 08:31 | Outpatient (CLI) | payer MEDICARE, MEDICAID ==
[2023-08-25 14:59] LABS: BASOPHILS % (AUTO) 0.5 %; EOSINOPHILS # (AUTO) 0.1 10^3/uL (0.0-0.7); EOSINOPHILS % (AUTO) 1.6 %; HCT - HEMATOCRIT 40.2 % (37.0-47.0); HGB - HEMOGLOBIN 12.8 g/dL (12.0-16.0); LYMPHOCYTES # (AUTO) 2.2 10^3/uL (1.5-3.5); LYMPHOCYTES % (AUTO) 35.3 %; MEAN CORPUSCULAR HEMOGLOBIN 31.3 pg (27.0-31.0); MEAN CORPUSCULAR HGB CONC 31.8 g/dL (32.0-36.0); MEAN CORPUSCULAR VOLUME 98.3 fL (81.0-99.0); MEAN PLATELET VOLUME 11.3 fL (7.9-10.8); MONOCYTES # (AUTO) 0.5 10^3/uL (0.0-1.0); MONOCYTES % (AUTO) 8.5 %; NEUTROPHILS # (AUTO) 3.4 10^3/uL (1.5-6.6); NEUTROPHILS % (AUTO) 53.9 %; PLT - PLATELET COUNT 301 10^3/uL (130-450); RED BLOOD COUNT 4.09 10^6/uL (4.20-5.40); RED CELL DISTRIBUTION WIDTH 14.1 % (12.0-15.0); WHITE BLOOD COUNT 6.4 x10^3/uL (4.8-10.8)
[2023-08-25 15:48] LABS: ALBUMIN 4.4 g/dL (3.2-5.5); ALBUMIN/GLOBULIN RATIO 1.6 (1.0-2.2); ALKALINE PHOSPHATASE 61 IU/L (42-121); ALT ALANINE AMINOTRANSFERASE 11 IU/L (10-60); AST ASPARTATE AMINOTRANSFERASE 19 IU/L (10-42); BILIRUBIN,TOTAL 0.6 mg/dL (0.2-1.0); BUN - BLOOD UREA NITROGEN 17 mg/dL (6-20); CALCIUM 9.6 mg/dL (8.5-10.3); CARBON DIOXIDE - CO2 27 mmol/L (21-32); CHLORIDE 105 mmol/L (101-111); CHOL/HDL RATIO 2.7 (<4.4); CHOLESTEROL 208 mg/dL; CREATININE 0.7 mg/dL (0.6-1.3); GFR - MDRD 87 (>89); GLUCOSE 98 mg/dL (74-104); HDL CHOLESTEROL 76 mg/dL; LDL CHOLESTEROL,CALCULATED 106 mg/dL; LDL/HDL RATIO 1.4 (<4.4); POTASSIUM 4.3 mmol/L (3.5-4.5); SODIUM 138 mmol/L (135-145); TOTAL PROTEIN 7.2 g/dL (6.4-8.9); TRIGLYCERIDES 132 mg/dL (48-352); VLDL CHOLESTEROL 26 mg/dL
[2023-08-25 15:49] LABS: THYROID STIMULATING HORMONE 2.15 uIU/mL (0.34-5.60)
[2023-08-25 21:27] LABS: ESTIMATED AVERAGE GLUCOSE 108 mg/dL (70-100); HEMOGLOBIN A1c% 5.4 % (4.27-6.07)
== END 2023-08-25 08:32 | disposition home or self-care (01) ==
LOC: LAB.S 08:31
PROVIDERS: ATTEND Internal Medicine
DX: R53.83 Other fatigue (principal); D64.9 Anemia, unspecified; M54.50 Low back pain, unspecified; Z78.0 Asymptomatic menopausal state; R63.5 Abnormal weight gain
CPT/HCPCS: 36415; 80053; 80061; 82607; 83036; 83721; 84443; 85025